=== PATIENT | male | born 1985 | race African-American/Black ===

== ENCOUNTER 2018-11-09 06:54 | Inpatient (IN) ==
[2018-11-09 07:19] LABS: Apearance,Urine CLEAR (Clear); Bilirubin,Urine Negative (Negative); Blood, Urine Small mg/dL (Negative); Glucose,Urine (UA) Negative (Negative); Ketones,Urine 20 mg/dL (Negative); Mucus,Urine Many /LPF (Occasional); Nitrite,Urine Negative (Negative); Protein,Urine Negative; RBC,Urine 1 /HPF (0-4); Urine Color Yellow (Yellow); Urine Specific Gravity 1.025 (1.001-1.035); WBC,Urine 1 /HPF (0-6)
[2018-11-09 08:37] LABS: Basophils # 0.1 10*3/uL (0.0-0.2); Basophils % 0.5 % (0.0-0.8); Eosinophils # 0.2 10*3/uL (0.0-0.87); Eosinophils % 1.3 % (0.00-10.9); Hematocrit 45.7 VOL% (42.0-52.0); Hemoglobin 15.1 GM/DL (14.0-18.0); Immature Granulocytes % 0.5 %; Immature Granulocytes Absolute 0.06 #; Lymphocytes # 2.4 10*3/uL (1.4-4.0); Lymphocytes % 18.5 % (21.2-54.2); Mean Corpuscular Volume 93.5 FL (87-102); Mean Platelet Volume 9.4 FL (9.6-12.0); Monocytes % 7.7 % (1.7-12.7); NRBC # 0.02 10*3/uL; Neutrophils % 71.5 % (38.7-73.9); Platelet Count 223 T/CUMM (130-400); Red Blood Count 4.89 MC/CUMM (3.8-5.5); White Blood Count 12.8 T/CUMM (4-12)
[2018-11-09] MEDS ORDERED: AMPICILLIN/SULBACTAM 3,000 MG in SODIUM CHLORIDE 0.9% 100 ML IV STA (08:53)
[2018-11-09 08:58] LABS: Albumin 4.3 G/DL (3.4-5.0); Bilirubin,Total 0.8 MG/DL (0.2-1.0); Calcium 8.9 MG/DL (8.5-10.1); Osmolality,Calculated 270.8 MOS/KG (273-304); Total Protein 7.7 G/DL (6.4-8.3)
[2018-11-09] MEDS ORDERED: cefOXitin 2,000 MG in SYRINGE 1 EACH IV STA (09:03)
[2018-11-09] MEDS ORDERED: ACETAMINOPHEN 325 MG TABLET PO PRN (09:04)
[2018-11-09] MEDS ORDERED: ALBUTEROL/IPRATROPIUM 3 ML NEB RESP TX PRN (09:04)
[2018-11-09] MEDS ORDERED: KETOROLAC 30 MG/1 ML VIAL IV PRN (09:04)
[2018-11-09] MEDS ORDERED: ONDANSETRON 4 MG/2 ML VIAL IV PRN ×2 (09:04→14:49)
[2018-11-09] MEDS ORDERED: BISACODYL 5 MG TABLET PO PRN (09:04)
[2018-11-09] MEDS ORDERED: HYDROmorphone 2 MG/1 ML VIAL IV PRN (09:04)
[2018-11-09] MEDS: HYDROmorphone 2 MG/1 ML VIAL IV PRN ×5 (09:23→19:49)
[2018-11-09] MEDS ORDERED: LORazepam 2 MG/1 ML VIAL IV PRN (10:15)
[2018-11-09] MEDS: LACTATED RINGERS 1,000 ML IV SCH ×2 (11:18→19:54)
[2018-11-09 11:27] LABS: Hepatitis B Core IgM Quant 0.11 Index; Hepatitis B Surface Ag Quant 0.55 Index; Hepatitis B Surface Ag Result Negative (Negative); Hepatitis C Virus Ab Quant 0.08 Index; Hepatitis C Virus Ab Result Negative (Negative)
[2018-11-09] MEDS ORDERED: BUPIVACAINE MPF 0.25% /EPI 30 ML VIAL ONE (12:48)
[2018-11-09] MEDS ORDERED: LIDOCAINE 1%/EPI INJ 20 ML VIAL ONE (12:48)
[2018-11-09] MEDS ORDERED: TISSUE ADHESIVE 1 EACH APPLICATOR TOP ONE (14:24)
[2018-11-09] MEDS ORDERED: SUGAMMADEX 200 MG/2 ML VIAL IV ONE (14:24)
[2018-11-09] MEDS ORDERED: MIDAZOLAM 2 MG/2 ML VIAL ONE (15:00)
[2018-11-09] MEDS ORDERED: fentaNYL 100 MCG/2 ML VIAL ONE (15:00)
[2018-11-10] MEDS: LACTATED RINGERS 1,000 ML IV SCH ×2 (03:17→09:35)
[2018-11-10 05:50] LABS: Basophils % 0.3 % (0.0-0.8); Eosinophils % 0.2 % (0.00-10.9); Hematocrit 40.9 VOL% (42.0-52.0); Immature Granulocytes % 0.5 %; Immature Granulocytes Absolute 0.06 #; Lymphocytes # 1.4 10*3/uL (1.4-4.0); Lymphocytes % 11.7 % (21.2-54.2); Mean Corpuscular HGB Conc 31.8 GM/DL (32-36); Mean Corpuscular Volume 96.2 FL (87-102); Mean Platelet Volume 9.9 FL (9.6-12.0); Monocytes % 7.3 % (1.7-12.7); Platelet Count 201 T/CUMM (130-400); Red Blood Count 4.25 MC/CUMM (3.8-5.5); Red Cell Distribution Width 15.3 % (9.3-17.3); White Blood Count 11.8 T/CUMM (4-12)
[2018-11-10 06:14] LABS: Calcium 8.6 MG/DL (8.5-10.1); Osmolality,Calculated 279.3 MOS/KG (273-304)
[2018-11-10] MEDS ORDERED: PANTOPRAZOLE 40 MG TABLET PO SCH (09:00)
[2018-11-10 11:12] VITALS: BP 148/93
[2018-11-10] MEDS ORDERED: POTASSIUM CHLORIDE 20 MEQ TABLET PO ONE (12:03)
== END 2018-11-10 13:01 | disposition home or self-care (01) | DRG 343 ==
LOC: N.ED 06:54 → N.EDINP 09:04 → N.3E 12:50
PROVIDERS: ADMIT Surgery; ATTEND Surgery